=== PATIENT | female | born 1950 | race Two or more races ===

== ENCOUNTER 2019-03-14 12:58 | Emergency (ER) | payer MEDICAID ==
[~2019-03-14] VITALS: Ht 167.6 cm; Wt 72.6 kg
[2019-03-14 13:06] VITALS: BP 146/89
[2019-03-14] MEDS ORDERED: oxyCODONE/APAP (5/325 MG) 1 UDTAB TABLET ONE (13:48)
[2019-03-14] MEDS: oxyCODONE/APAP (5/325 MG) 1 UDTAB TABLET PO ONE (13:53)
== END 2019-03-14 13:54 | disposition home or self-care (01) ==
LOC: ER 12:58
DX: H60.91 Unspecified otitis externa, right ear (principal); I10 Essential (primary) hypertension

== ENCOUNTER 2021-11-06 18:40 | Emergency (ER) | payer MEDICARE, OTHER ==
[~2021-11-06] VITALS: Ht 167.6 cm; Wt 75.4 kg
--- NOTE | 2021-11-06 18:54 | NUR ---
BIBS FOR C/O HEADACHE 11/15 X1 DAY. DENIES N/V. IN ROOM AIR AND DENIES SOB. RESPIRATION REGULAR AND UNLABORED. WILL CONTINUE TO MONITOR THE PATIENT.
--- NOTE | 2021-11-06 19:14 | NUR ---
IV ESTABLISHED L HAND 22G HAND. LABS DRAWN AND SENT.
[2021-11-06] MEDS ORDERED: IV NS 0.9% 1,000 ML BAG IV ONE (19:30)
[2021-11-06] MEDS ORDERED: METOCLOPRAMIDE HCL 10 MG/2 ML VIAL IV ONE (19:30)
[2021-11-06] MEDS ORDERED: SUMATRIPTAN SUCCINATE 6 MG/0.5 ML VIAL SQ ONE ×2 (19:30→19:45)
[2021-11-06] MEDS ORDERED: KETOROLAC TROMETHAMINE INJ 30 MG/ML VIAL IV ONE (19:30)
[2021-11-06] MEDS ORDERED: KETOROLAC TROMETHAMINE 15 MG/ML VIAL ONE (19:44)
[2021-11-06] MEDS ORDERED: METOCLOPRAMIDE HCL 10 MG/2 ML VIAL ONE (19:45)
--- NOTE | 2021-11-06 21:04 | NUR ---
IV removed. Catheter intact and site benign. Pressure and 4x4 applied to site. No bleeding noted.
[2021-11-06] MEDS ORDERED: SUMA100T PO (21:05)
[2021-11-06] MEDS ORDERED: METO-295 PO (21:05)
--- NOTE | 2021-11-06 21:10 | NUR ---
Patient discharged to home in stable condition. Written and verbal after care instructions given. Patient verbalizes understanding of instruction.
[2021-11-06 21:16] VITALS: BP 138/68
== END 2021-11-06 21:17 | disposition home or self-care (01) ==
LOC: ER 18:48
DX: R51.9 Headache, unspecified (principal); I10 Essential (primary) hypertension; E78.5 Hyperlipidemia, unspecified
CPT/HCPCS: 99284; 96374; 70450; 96361; 96375; 96372; J3030; J2765; J7030; J1885